=== PATIENT | female | born 1950 | race Asian ===

== ENCOUNTER 2016-06-18 13:56 | Emergency (ER) | payer MEDICARE, MEDICAID ==
[~2016-06-18] VITALS: Ht 167.6 cm; Wt 65.8 kg
[~2016-06-18 13:56] MED LIST: IBUPROFEN600 MG ORAL; NORCO 5-325 TA1 EAC1 ORAL; NORCO 5-325 TA1 EACH ORAL; PANTOPRAZOLE SO40 MG ORAL; PRILOSEC20 MG PO; TAMIFLU75 MG PO; VALIUM2 MG ORAL
[2016-06-18 14:55] VITALS: BP 106/70
[2016-06-18] MEDS ORDERED: TRAMADOL HCL50 MG ORAL (16:02)
[2016-06-18] MEDS ORDERED: IBUPROFEN600 MG ORAL (16:02)
[2016-06-18 16:25] VITALS: BP_SYST 106; BP_SYST 111; BP_DIAS 70; BP_DIAS 74
--- NOTE | 2016-06-18 17:30 | Diagnostic Imaging Report ---
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 There is some secondary degenerative change There are fractures of the second third and fourth possible phalanges noted. No carpal fracture. Bones are osteoporotic. Impression: Positive for second and third and fourth proximal phalangeal fractures. No acute carpal trauma Findings discussed by phone with Dr. Melendez in the emergency room at the time of interpretation
--- NOTE | 2016-06-18 17:50 | Diagnostic Imaging Report ---
Clinical Indication:PAIN Technique: 3 views of the right wrist Comparison: 05/15/2015 Findings: There is stable slight Madelung deformity and dorsal subluxation of the ulna, secondary degenerative change. There are acute fractures of the bases of the second third and fourth proximal phalanges. No acute dislocations. The bones are osteoporotic. There are degenerative changes of the second through fifth distal interphalangeal joints and of the fourth proximal interphalangeal joint Impression: Positive for second third and fourth proximal phalangeal fractures Osteoporosis Degenerative changes as described Findings discussed by phone with Dr. Melendez in the emergency room Chronic deformity as described
--- NOTE | 2016-06-18 22:39 | Emergency Room Report ---
History of Present Illness General Chief Complaint: Upper Extremity Injury Source: Patient (DANIEL RUCKER) Present Illness HPI The patient is a 66-year-old [id number] F present with right hand and wrist pain which began today after falling. The patient states that she tripped on cement outside and fell onto the right hand. Patient states that she is experiencing 10/10 dull pain to the wrist and hand. The patient denies numbness or tingling of the extremity and denies radiation of pain. (DANIEL RUCKER) Allergies: Coded Allergies: DIPHENHYDRAMINE HCL (Verified Allergy, 06/11/12) Patient History Reviewed Nursing Documentation: PMH: Agreed, PSxH: Agreed (DANIEL RUCKER) Nursing Documentation-PMH Hx Cancer: No Hx Gastrointestinal Problems: Yes - GERD Hx Neurological Problems: No (DANIEL RUCKER) Review of Systems All Other Systems: negative except mentioned in HPI (DANIEL RUCKER) Physical Exam Vital Signs Date Time Temp Pulse Resp B/P Pulse Ox O2 Delivery O2 Flow Rate FiO2 06/18/16 14:17 97.3 70 14 106/70 98 Room Air Sp02 EP Interpretation: reviewed, normal General Appearance: no apparent distress, alert, GCS 15, non-toxic Head: normocephalic, atraumatic Eyes: bilateral eye PERRL, bilateral eye normal inspection ENT: hearing grossly normal, normal pharynx, no angioedema, normal voice Musculoskeletal: back normal, gait/station normal, normal range of motion, swelling - over R 2nd, 3rd digits, tender - diffuse over R wrist and hand Neurologic: alert, oriented x3, responsive, motor strength/tone normal, sensory intact, speech normal Psychiatric: judgement/insight normal, memory normal, mood/affect normal, no suicidal/homicidal ideation Skin: normal color, no rash, warm/dry, well hydrated (DANIEL RUCKER P.Domingo) Procedures Splinting Splinting : Consent: Verbal Location: R hand Hand-Made Type: plaster Splint: volar Pre-Proc Neuro Vasc Exam: normal Post-Proc Neuro Vasc Exam: normal Patient Tolerated: Well Complications: None (DANIEL RUCKER) Medical Decision Making PA Attestation Dr. Bynum is my supervising physician. Patient management was discussed with my supervising physician (DANIEL RUCKER) Medicare Attestation The history of Biju Cotto has been reviewed and management options for her have been examined and discussed by Mauro Bynum. I have personally examined and interviewed the patient. (MAURO BYNUM M.D.) Diagnostic Impression: Primary Impression: Fracture of finger ER Course The patient is a 66-year-old female presenting with right hand and wrist pain after falling today Ddx considered include but not limited to sprain/strain, fracture, contusion Physical exam: Vitals are within normal limits. Right hand: There is tenderness to palpation diffusely over the wrist and hand. Limited active range of motion with flexion of fingers due to pain. There is edema noted over the second and third digits. Skin intact. SILT. X-ray of the wrist unremarkable. X-ray of the hand shows fractures of the second, third, and fourth proximal phalanges. Nondisplaced. Pt given motrin for pain and placed in volar splint. Pt will FU with PMD and orthopedics physician. ER preacautions given (DANIEL RUCKER) Other X-Ray Diagnostic Results Other X-Ray Diagnostic Results #1: X-Ray Ordered: R wrist Date: Jun 18, 2016 EP Interpretation: Yes Findings: no fractures, no dislocation, no soft tissue swelling Number of Views: 3 PA Scribe Text I am acting as scribe for my supervising physician. My supervising physician's interpretation of the R wrist xrays are there are no fractures, dislocations or soft tissue swelling. Other X-Ray Diagnostic Results #2: X-Ray Ordered: R hand Date: Jun 18, 2016 EP Interpretation: Yes Findings: no dislocation, other - Fracture of the 2nd, 3rd, and 4th proximal phalanges PA Scribe Text I am acting as scribe for my supervising physician. My supervising physician's interpretation of the R hand xrays are as above. Fractures of 2, 3,4th proximal phalanges (DANIEL RUCKER) Last Vital Signs Date Time Temp Pulse Resp B/P Pulse Ox O2 Delivery O2 Flow Rate FiO2 06/18/16 16:25 97.4 81 15 111/74 98 Room Air Status: improved (DANIEL RUCKER) Disposition: HOME, SELF-CARE Condition: Improved Scripts Tramadol Hcl* (ULTRAM*) 50 Mg Tablet 50 MG ORAL Q6H Y for For Pain, #10 TAB 0 Refills Prov: DANIEL RUCKER P.A. 06/18/16 Ibuprofen* (MOTRIN*) 600 Mg Tablet 600 MG ORAL Q8H Y for For Pain, #30 TAB 0 Refills Prov: DANIEL RUCKER.A. 06/18/16 Patient Instructions: Finger Fracture Additional Instructions: I discussed my findings with the patient. All questions and concerns have been answered. Treatment and medication compliance have been addressed. I advised the patient that they need to follow up with PMD in 3-5 days. Return to ED if pain remains or worsens, numbness or tingling occurs, new rash is noticed, fever is noticed, or if needed for any reason. Patient verbalized understanding of discharge instructions. DANIEL RUCKER Jun 18, 2016 22:39 MAURO BYNUM M.D. Jun 26, 2016 21:56
== END 2016-06-18 16:27 | disposition home or self-care (01) ==
LOC: EMR 15:50
DX: S62.630A Displaced fracture of distal phalanx of right index finger, initial encounter for closed fracture (principal); S62.612A Displaced fracture of proximal phalanx of right middle finger, initial encounter for closed fracture; S62.614A Displaced fracture of proximal phalanx of right ring finger, initial encounter for closed fracture; W01.0XXA Fall on same level from slipping, tripping and stumbling without subsequent striking against object, initial encounter; Y92.9 Unspecified place or not applicable; K21.9 Gastro-esophageal reflux disease without esophagitis
CPT/HCPCS: 29125; 99284

== ENCOUNTER 2017-06-15 11:20 | Emergency (ER) | payer MEDICARE, MEDICAID ==
[~2017-06-15] VITALS: Ht 167.6 cm; Wt 68.0 kg
[~2017-06-15 11:20] MED LIST changes: +TRAMADOL HCL50 MG ORAL
[2017-06-15 11:25] VITALS: BP 139/79
[2017-06-15] MEDS ORDERED: IBUPROFEN600 MG ORAL (12:18)
--- NOTE | 2017-06-15 12:18 | Emergency Room Report ---
History of Present Illness General Chief Complaint: Skin Rash/Abscess Source: Patient, Medical Record Present Illness HPI 67-year-old female patient presents to ER complaining of blister in her mouth for a few days. Patient reports blister on the inside of her cheek popped and began to drain blood. Patient states the blister is no longer bleeding. Patient denies tooth or gum pain. Patient reports no history of trauma to the area. Patient denies history of blood disorders. Patient states she has not been to the dentist in over a year. Denies fever, nausea, vomiting, rash, chest pain, SOB. Allergies: Coded Allergies: DIPHENHYDRAMINE HCL (Verified Allergy, 06/11/12) Patient History Past Medical History: see triage record Social History: Denies: smoking, alcohol use, drug use Reviewed Nursing Documentation: PMH: Agreed, PSxH: Agreed Nursing Documentation-PMH Past Medical History: No History, Except For Hx Cancer: No Hx Gastrointestinal Problems: Yes - GERD Hx Neurological Problems: No Review of Systems All Other Systems: negative except mentioned in HPI Physical Exam Vital Signs Date Time Temp Pulse Resp B/P (MAP) Pulse Ox O2 Delivery O2 Flow Rate FiO2 06/15/17 11:25 97.5 71 18 139/79 94 Room Air Sp02 EP Interpretation: reviewed, normal General Appearance: no apparent distress, alert, GCS 15, non-toxic Head: normocephalic, atraumatic Eyes: bilateral eye normal inspection, bilateral eye PERRL ENT: hearing grossly normal, normal pharynx, normal voice, uvula midline, moist mucus membranes, other - right inside of cheek in oral cavity: 1 cm open blister with dried blood, no active bleeding, no apthous ulcers, no vesicles Neck: full range of motion Respiratory: chest non-tender, lungs clear, normal breath sounds, speaking full sentences Cardiovascular #1: regular rate, rhythm Musculoskeletal: back normal, digits/nails normal, gait/station normal, normal range of motion, non-tender Neurologic: alert, oriented x3, responsive, motor strength/tone normal, sensory intact, speech normal Psychiatric: mood/affect normal Skin: normal color, no rash, warm/dry, well hydrated Lymphatic: no adenopathy Medical Decision Making PA Attestation Dr. Judd is my supervising physician with whom patient management has been discussed with. Diagnostic Impression: Primary Impression: Mouth sore ER Course Pt presents to ED c/o blister in mouth. DDX considered but are not limited to herpes, mechanical trauma, abrasion, gum disease, aphthous ulcer. VITAL SIGNS are WNL, patient is afebrile ORDERS: none required at this time, diagnosis is clinical ED INTERVENTIONS: none required at this time ER COURSE: Patient is resting comfortably in no acute distress, non-toxic appearing. Patient is not actively bleeding. Explained to patient possible causes of cut in mouth. Patient instructed to follow up with primary care provider and dentist in 3-5 days to discuss further treatment and followup. Patient reports understanding and agrees to treatment plan. DISCHARGE: Rx provided for Ibuprofen for pain At this time pt is stable for d/c to home. Will provide with patient care instructions and any necessary prescriptions. Patient to take medication as instructed. Care plan and follow-up instructions provided. Patient questions asked and answered. ER precautions given. Patient instructed to return to ER immediately for any new or worsening of symptoms. Last Vital Signs Date Time Temp Pulse Resp B/P (MAP) Pulse Ox O2 Delivery O2 Flow Rate FiO2 06/15/17 11:25 97.5 71 18 139/79 94 Room Air Disposition: HOME, SELF-CARE Condition: Stable Scripts Ibuprofen* (MOTRIN*) 600 Mg Tablet 600 MG ORAL Q6H Y for For Pain, #30 TAB Prov: Levi Dobbs 06/15/17 Additional Instructions: Followup with primary care provider in 3 -5 days for further follow up and treatment of mouth sore. Followup with dentist this week for further treatment. Take medications as directed. Patient questions asked and answered. ER precautions given, patient instructed to return to ER immediately for any new or worsening of symptoms. Levi Dobbs Jun 15, 2017 12:18
[2017-06-15 12:32] VITALS: BP 139/79
== END 2017-06-15 12:32 | disposition home or self-care (01) ==
LOC: EMR 11:58
DX: K13.70 Unspecified lesions of oral mucosa (principal); K21.9 Gastro-esophageal reflux disease without esophagitis; Z88.8 Allergy status to other drugs, medicaments and biological substances
CPT/HCPCS: 99283

== ENCOUNTER 2019-01-04 09:54 | Emergency (ER) | payer MEDICARE, MEDICAID ==
[~2019-01-04] VITALS: Ht 167.6 cm; Wt 72.6 kg
[2019-01-04 10:10] VITALS: BP 120/87
--- NOTE | 2019-01-04 10:13 | Emergency Room Report ---
History of Present Illness General Chief Complaint: General Complaint Source: Patient Present Illness HPI Patient is a 68-year-old female who presents for increased right-sided facial twitching. Patient reports this had been onset several weeks ago. She denies any extremity discomfort or weakness. She reports taking multiple medications due to osteoporosis including thiazide diuretic as well as bisphosphonate. She denies any diarrhea. She had prior history of hypertension. Allergies: Coded Allergies: DIPHENHYDRAMINE HCL (Verified Allergy, 06/11/12) Patient History Now: No Reviewed Nursing Documentation: PMH: Agreed; PSxH: Agreed Nursing Documentation-PMH Past Medical History: No History, Except For Hx Cancer: No Hx Gastrointestinal Problems: Yes - GERD Hx Neurological Problems: No Review of Systems All Other Systems: negative except mentioned in HPI Physical Exam Vital Signs Date Time Temp Pulse Resp B/P (MAP) Pulse Ox O2 Delivery O2 Flow Rate FiO2 01/04/19 09:59 97.9 72 15 156/89 (111) 95 Room Air Sp02 EP Interpretation: reviewed, normal General Appearance: normal inspection, well appearing, no apparent distress, alert, GCS 15, non-toxic Head: atraumatic ENT: normal ENT inspection, hearing grossly normal, normal voice Neck: normal inspection, full range of motion, supple, no bony tend Respiratory: normal inspection, lungs clear, normal breath sounds, no respiratory distress, no retraction, no wheezing Cardiovascular #1: regular rate, rhythm, no edema Gastrointestinal: normal inspection, normal bowel sounds, non tender, soft, no guarding, no hernia Genitourinary: no CVA tenderness Musculoskeletal: normal inspection, back normal, normal range of motion Neurologic: normal inspection, alert, responsive, speech normal Psychiatric: normal inspection, judgement/insight normal, mood/affect normal Medical Decision Making Diagnostic Impression: Primary Impression: Facial tic ER Course Patient presented for facial twitching. Differential diagnosis include was not limited to CVA, electrolyte abnormality, trigeminal neuralgia, facial nerve palsy among others. Because of complexity of patient's case laboratory testing and imaging studies were ordered. Patient was noted to be taking thiazide diuretics as well as medications for osteoporosis. CT imaging of the head read by radiology showed chronic ischemic white matter changes without evident acute CVA laboratory testing was essentially unremarkable. Patient appears to be stable for outpatient work-up. She advised to follow-up with neurology for further evaluation. She will be empirically treated with Tegretol due to facial tic. Patient is to return if worse. Last Vital Signs Date Time Temp Pulse Resp B/P (MAP) Pulse Ox O2 Delivery O2 Flow Rate FiO2 01/04/19 09:59 97.9 72 15 156/89 (111) 95 Room Air Status: improved Disposition: HOME, SELF-CARE Condition: Stable Scripts Carbamazepine (TEGRETOL*) 200 Mg Tablet 200 MG PO Q12HR, #20 TAB 0 Refills Prov: Yonas Coronado MD 01/04/19 Yonas Coronado MD Jan 04, 2019 10:13
[2019-01-04 10:33] LABS: BASOPHILS % (AUTO) 0.9 % (0.0-2.0); EOSINOPHILS % (AUTO) 1.2 % (0.0-3.0); HEMATOCRIT 39.3 % (37.0-47.0); HEMOGLOBIN 13.5 G/DL (12.0-16.0); LYMPHOCYTES % (AUTO) 28.8 % (20.0-45.0); MEAN CORPUSCULAR VOLUME 97 FL (80-99); MONOCYTES % (AUTO) 5.8 % (1.0-10.0); NEUTROPHILS % (AUTO) 63.3 % (45.0-75.0); PLATELET COUNT 208 K/UL (150-450); RED BLOOD COUNT 4.04 M/UL (4.20-5.40)
[2019-01-04 10:44] LABS: ANION GAP 9 mmol/L (5-15); BLOOD UREA NITROGEN 11 mg/dL (7-18); CALCIUM 8.9 MG/DL (8.5-10.1); CARBON DIOXIDE 24 MMOL/L (21-32); CHLORIDE 106 MMOL/L (98-107); CREATININE 0.7 MG/DL (0.55-1.30); SODIUM 139 MMOL/L (136-145)
[2019-01-04 10:57] LABS: ALANINE AMINOTRANSFERASE 19 U/L (12-78); ALBUMIN/GLOBULIN RATIO 1.1 (1.0-2.7); ALKALINE PHOSPHATASE 39 U/L (46-116); ASPARTATE AMINO TRANSFERASE 17 U/L (15-37); BILIRUBIN,TOTAL 0.5 MG/DL (0.2-1.0)
--- NOTE | 2019-01-04 11:00 | Diagnostic Imaging Report ---
Indications: Pain, increased right-sided facial twitching Technique: Spiral acquisitions obtained through the brain. Angled axial and coronal 5 x 5 mm slices were reconstructed. Total dose length product 1442.94 mGycm. CTDI vol(s) 70.38 mGy. Dose reduction achieved using automated exposure control Comparison: None. Findings: No acute intracranial hemorrhage or edema. No mass effect nor midline shift. Normal fuentes-white differentiation. Normal size, for age, ventricles and extra axial CSF spaces. There is minimal periventricular deep white matter low-attenuation consistent with chronic microvascular ischemic change. Visualized orbits and sinuses are unremarkable. The mastoids are clear. The calvarium is intact. Impression: Minimal periventricular deep white matter chronic ischemic change. Negative for acute intracranial bleed or mass effect The CT scanner at [facility] is accredited by the [employer] and the scans are performed using protocols designed to limit radiation exposure to as low as reasonably achievable to attain images of sufficient resolution adequate for diagnostic evaluation.
[2019-01-04] MEDS ORDERED: DEPAKOTE500 MG PO (11:28)
[2019-01-04] MEDS ORDERED: TEGRETOL200 MG PO (11:33)
[2019-01-04 11:49] VITALS: BP 134/76
== END 2019-01-04 11:50 | disposition home or self-care (01) ==
LOC: EMR 10:15
DX: F95.8 Other tic disorders (principal); I10 Essential (primary) hypertension; M81.0 Age-related osteoporosis without current pathological fracture; K21.9 Gastro-esophageal reflux disease without esophagitis; Z88.8 Allergy status to other drugs, medicaments and biological substances
CPT/HCPCS: 36415; 70450; 80053; 83735; 84443; 85025; 96365; 99284

== ENCOUNTER 2019-02-14 09:12 | Emergency (ER) | payer MEDICARE, MEDICAID ==
[~2019-02-14] VITALS: Ht 160 cm; Wt 65.8 kg
[~2019-02-14 09:12] MED LIST changes: +DEPAKOTE500 MG PO; +TEGRETOL200 MG PO
[2019-02-14] MEDS ORDERED: UNOBMED (09:19)
--- NOTE | 2019-02-14 09:30 | NUR ---
Patient walked in the ER complaining of pain on her Right side of the face radiating on her right side of the neck with a feeing of bnumbness and tingling sensation. Patient able to walk to the restroom without assistance. No signs of stroke. No slurred speech noted. No right arm or shoulder numbing. No drooping of the face noted. Able to grasp urne up without a problem.
--- NOTE | 2019-02-14 09:55 | Emergency Room Report ---
History of Present Illness General Chief Complaint: Pain Source: Patient Present Illness HPI Disclaimer: Please note that this report is being documented using DRAGON technology. This can lead to erroneous entry secondary to incorrect interpretation by the dictating instrument. HPI: Is a 69-year-old female presenting for evaluation of right-sided neck pain , shoulder pain and facial twitching as well as to discuss lab and imaging results. Patient recently underwent a full work-up by her PMD including a CT of the brain, CTA of the head and neck, full laboratory panel. She has not yet been able to discuss these results with her PMD and came in to discuss in the setting of neck pain and cramping. She is concerned that she may be having a stroke given the right shoulder pain because the CTA showed some calcifications in the vessels but no sniffing and stenosis, no aneurysm, no evidence of ischemia, no mass, no intracranial bleed. Lab work shows slight elevation in cholesterol also giving her anxiety thinking she may be having a stroke due to the cholesterol of 245. Electrolytes are within normal limits, methylmalonic acid, TSH within normal limits. Patient states she had a mechanical trip and fall over 1 week ago without a head injury or neck injury. Ever since then she has been having some cramping over the right shoulder and the right side of the neck and began as some twitching in the right side of the face yesterday. She denies headaches, visual changes, fevers, chills. No difficulty swallowing, no chest pain, no shortness of breath, no GI symptoms. Otherwise in her usual state of health. She is very concerned of whether or not she should start cholesterol medications and wanted to discuss her lab and imaging results as reason for her emergency department visit today. She is more concerned about starting cholesterol medications as opposed to a dietary approach and was requesting a second opinion on her lab results. PMH: None PSH: None Allergies: Benadryl Social Hx: Denies drug or alcohol use Allergies: Coded Allergies: DIPHENHYDRAMINE HCL (Verified Allergy, 06/11/12) Nursing Documentation-PMH Hx Cancer: No Hx Gastrointestinal Problems: Yes - GERD Hx Neurological Problems: No Review of Systems All Other Systems: negative except mentioned in HPI Physical Exam Vital Signs Date Time Temp Pulse Resp B/P (MAP) Pulse Ox O2 Delivery O2 Flow Rate FiO2 02/14/19 09:15 98.8 71 18 144/89 (107) 96 Room Air General: Awake and alert, no acute distress HEENT: Normocephalic, atraumatic. There are no scalp or face hematomas, lacerations or abrasions. No tenderness or soft tissue swelling over the facial bones. EOMI. PERRLA. No septal hematoma. No oral lacerations. Dentition is intact. No malocclusion Neck: Supple, trachea midline. Arrives without cervical collar CV: RRR. S1 and S2 normal. No murmur appreciated Resp: Normal work of breathing. No cough, wheezing or crackles appreciated Abd: Soft, nontender, nondistended Skin: Intact. No abrasions, laceration or rash over the exposed skin MSK: Normal tone and bulk. No obvious deformity. Moving all extremities. Ambulating without difficulty. Neuro: Awake and alert. Mentating appropriately. Intermittent twitching of the right cheek Spine: There is no tenderness, step-off or deformity in the cervical, thoracic or lumbosacral spine. There is right-sided paraspinal tenderness extending over the right shoulder in the distribution of the right trapezius. No limitation in range of motion in the right upper extremity. Medical Decision Making Diagnostic Impression: Primary Impression: Facial twitching Additional Impression: Spasm of back muscles ER Course This is a 69-year-old female who had a mechanical fall without head injury or back injury last week now complaining of right-sided neck and shoulder pain as well as facial twitching as well as to discuss recent CT and lab results. I reviewed the patient's CT and labs and show no significant acute disease aside from mild elevation in total cholesterol and atherosclerotic disease of the cranial vessels. She is in no acute acute distress and does not appear to be significant Andres bothered by her neck or shoulder pain has much as she is regarding the hypercholesterolemia. I discussed with her that she needs to follow-up more closely with her PMD to fully discuss all her concerns regarding starting new medications and her lab and imaging results. We will treat her back spasms with NSAIDs, Lidoderm patch, Robaxin. She has had facial twitching in the past and that she can follow-up with her PMD as well. Do not believe she requires emergent lab work or imaging given the recent diagnostics studies performed. She will be discharged to follow-up with her PMD. We discussed reasons to return to the emergency department. She understands and agrees with this treatment plan Last Vital Signs Date Time Temp Pulse Resp B/P (MAP) Pulse Ox O2 Delivery O2 Flow Rate FiO2 02/14/19 09:15 98.8 71 18 144/89 (107) 96 Room Air Disposition: HOME, SELF-CARE Condition: Stable Scripts Lidocaine Patch* (Lidoderm Patch*) 1 Each Adh..patch 1 PATCH TOPIC DAILY, #7 PATCH 0 Refills Patch(es) may remain in place for up to 12 hours in any 24-hour period. Prov: Jerry Hewitt MD 02/14/19 Methocarbamol (Methocarbamol) 750 Mg Tablet 750 MG PO QID for 7 Days, #28 TAB Prov: Jerry Hewitt MD 02/14/19 Ibuprofen* (MOTRIN*) 600 Mg Tablet 600 MG ORAL Q8H PRN for For Pain, #30 TAB 0 Refills Prov: Jerry Hewitt MD 02/14/19 Jerry Hewitt MD Feb 14, 2019 09:55
[2019-02-14] MEDS ORDERED: IBUPROFEN600 MG ORAL (10:00)
[2019-02-14] MEDS ORDERED: METHOCARBAMOL750 M1 PO (10:00)
[2019-02-14] MEDS ORDERED: Ketorolac 30mg Inj IM ONE (10:00)
[2019-02-14] MEDS ORDERED: LIDODERM700 M1 TOPIC (10:00)
[2019-02-14] MEDS ORDERED: Methocarbamol 750mg tab ORAL ONE (10:00)
[2019-02-14 10:34] VITALS: BP 151/80
[2019-02-14 10:38] VITALS: BP 137/80
--- NOTE | 2019-02-14 10:42 | NUR ---
ER DISCHARGE NOTE: Patient is cleared to be discharged per ERMD, pt is aox4, on room air, with stable vital signs. pt was given dc and prescription instructions, pt was able to verbalize understanding, pt id band and removed without complications. pt is able to ambulate with steady gait. pt took all belongings.
== END 2019-02-14 10:38 | disposition home or self-care (01) ==
LOC: EMR 10:00
DX: M62.830 Muscle spasm of back (principal); R25.3 Fasciculation; K21.9 Gastro-esophageal reflux disease without esophagitis; Z88.8 Allergy status to other drugs, medicaments and biological substances; E78.00 Pure hypercholesterolemia, unspecified; F41.9 Anxiety disorder, unspecified
CPT/HCPCS: 96372; 99283; J1885

== ENCOUNTER 2019-05-06 10:12 | Emergency (ER) | payer MEDICARE, MEDICAID ==
[~2019-05-06] VITALS: Ht 167.6 cm; Wt 65.8 kg
[~2019-05-06 10:12] MED LIST changes: +LIDODERM700 M1 TOPIC; +METHOCARBAMOL750 M1 PO; +UNOBMED
[2019-05-06] MEDS ORDERED: ASPIRIN81 MG ORAL (10:22)
[2019-05-06] MEDS ORDERED: ATORVASTATIN CA20 MG ORAL (10:22)
--- NOTE | 2019-05-06 10:39 | Emergency Room Report ---
History of Present Illness General Chief Complaint: Abdominal Pain Source: Patient Present Illness HPI Disclaimer: Please note that this report is being documented using DRAGON technology. This can lead to erroneous entry secondary to incorrect interpretation by the dictating instrument. HPI: 69-year-old female presents for evaluation of abdominal pain. Symptoms have been present for approximately 4 days. Intermittent abdominal pain without significant nausea, vomiting or diarrhea reported. Pain was 10 out of 10 this morning, somewhat of a burning sensation in the epigastrium and in the upper quadrants bilaterally. Occasionally the pain will radiate up into the chest. She has been treated for GERD in the past. Pain is exacerbated by eating and cannot recall any specific relieving factors. No history of intra- abdominal surgery. Denying chest pain, shortness of breath, recent URI symptoms. Patient drinks 1 or 2 cans of beers a week. Denies any recent alcohol use. PMH: Hypertension, hypercholesterolemia, osteoporosis, GERD PSH: Denies Allergies: Benadryl Social Hx: Never smoker, occasional alcohol Allergies: Coded Allergies: DIPHENHYDRAMINE HCL (Verified Allergy, 06/11/12) Nursing Documentation-PMH Past Medical History: No History, Except For Hx Cancer: No Hx Gastrointestinal Problems: Yes - GERD Hx Neurological Problems: No Review of Systems All Other Systems: negative except mentioned in HPI Physical Exam Vital Signs Date Time Temp Pulse Resp B/P (MAP) Pulse Ox O2 Delivery O2 Flow Rate FiO2 05/06/19 10:17 97.5 70 17 118/67 (84) 99 Room Air General: Awake and alert, no acute distress HEENT: NC/AT. EOMI. Neck: Supple, trachea midline Chest Wall: No tenderness, no deformity Cardiovascular: RRR. S1 and S2 normal. No murmur appreciated Resp: Normal work of breathing. No cough, wheezing or crackles appreciated Abdomen: Abdomen is soft, nondistended. Abdomen is very tender to palpation in the epigastric region as well as the right upper quadrant and left upper quadrant. Negative Garcia's. No rebound otherwise. The remainder of the abdomen is nontender. Skin: Intact. No abrasions, laceration or rash over the exposed skin MSK: Normal tone and bulk. Moving all extremities. No obvious deformity. Neuro: Awake and alert. Mentating appropriately. Medical Decision Making Diagnostic Impression: Primary Impression: Abdominal pain Additional Impressions: Diverticula of colon Varices, esophageal ER Course 61-year-old female with a history of GERD presents for evaluation of 4 days worsening abdominal pain. Differential includes was not limited to gastritis, gastroenteritis, pancreatitis, cholecystitis, ACS, esophagitis, mesenteric ischemia, UTI. Start broad metabolic infectious and cardiac work-up. Will send patient for a CT scan of the abdomen with IV contrast. IV fluids, antacids and GI cocktail ordered. Currently denying nausea. Laboratory Tests Test 05/06/19 10:50 05/06/19 12:20 White Blood Count 3.8 K/UL (4.8-10.8) L Red Blood Count 3.63 M/UL (4.20-5.40) L Hemoglobin 11.9 G/DL (12.0-16.0) L Hematocrit 34.7 % (37.0-47.0) L Mean Corpuscular Volume 96 FL (80-99) Mean Corpuscular Hemoglobin 32.8 PG (27.0-31.0) H Mean Corpuscular Hemoglobin Concent 34.3 G/DL (32.0-36.0) Red Cell Distribution Width 10.5 % (11.6-14.8) L Platelet Count 137 K/UL (150-450) L Mean Platelet Volume 6.4 FL (6.5-10.1) L Neutrophils (%) (Auto) 72.6 % (45.0-75.0) Lymphocytes (%) (Auto) 15.9 % (20.0-45.0) L Monocytes (%) (Auto) 10.3 % (1.0-10.0) H Eosinophils (%) (Auto) 0.0 % (0.0-3.0) Basophils (%) (Auto) 1.2 % (0.0-2.0) Sodium Level 140 MMOL/L (136-145) Potassium Level 4.3 MMOL/L (3.5-5.1) Chloride Level 102 MMOL/L (98-107) Carbon Dioxide Level 28 MMOL/L (21-32) Anion Gap 10 mmol/L (5-15) Blood Urea Nitrogen 15 mg/dL (7-18) Creatinine 0.6 MG/DL (0.55-1.30) Estimate Glomerular Filtration Rate > 60 mL/min (>60) Glucose Level 100 MG/DL (74-106) Calcium Level 8.5 MG/DL (8.5-10.1) Total Bilirubin 0.3 MG/DL (0.2-1.0) Aspartate Amino Transferase (AST) 20 U/L (15-37) Alanine Aminotransferase (ALT) 23 U/L (12-78) Alkaline Phosphatase 46 U/L (46-116) Troponin I 0.009 ng/mL (0.000-0.056) Total Protein 7.7 G/DL (6.4-8.2) Albumin 4.1 G/DL (3.4-5.0) Globulin 3.6 g/dL Albumin/Globulin Ratio 1.1 (1.0-2.7) Lipase 179 U/L (73-393) Urine Color Pale yellow Urine Appearance Clear Urine pH 6 (4.5-8.0) Urine Specific [place] 1.010 (1.005-1.035) Urine Protein Negative (NEGATIVE) Urine Glucose (UA) Negative (NEGATIVE) Urine Ketones 1+ (NEGATIVE) H Urine Blood Negative (NEGATIVE) Urine Nitrite Negative (NEGATIVE) Urine Bilirubin Negative (NEGATIVE) Urine Urobilinogen Normal MG/DL (0.0-1.0) Urine Leukocyte Esterase Negative (NEGATIVE) EKG Diagnostic Results EKG Time: 10:57 Rate: normal Rhythm: NSR ST Segments: no acute changes Other Impression Sinus rhythm, normal axis, normal intervals, no ST segment changes. RSR prime in V1, V2 consistent with a right bundle block Rhythm Strip Diag. Results Rhythm Strip Time: 10:57 EP Interpretation: yes Rate: 60s Rhythm: NSR, no PVC's, no ectopy Reevaluation Time: 14:22 Last Vital Signs Date Time Temp Pulse Resp B/P (MAP) Pulse Ox O2 Delivery O2 Flow Rate FiO2 05/06/19 10:17 97.5 70 17 118/67 (84) 99 Room Air Reevaluation Impression Pain improved after a GI cocktail. Labs have returned within normal limits. CT scan of the abdomen showed small esophageal varices, diverticulosis without diverticulitis, no evidence of appendicitis or other major pathology. The patient's pain is all epigastric and she does not have any clinical signs of diverticulitis. 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 She does drink a lot of coffee and eat a lot of chocolate as well as spicy foods which I suspect is making her gastritis somewhat worse. We will start her on omeprazole and Maalox. She will follow-up with her PMD. Copies of her labs imaging were included in her discharge paperwork. We discussed reasons to return to the emergency department. She understands and agrees with this treatment plan. Disposition: HOME, SELF-CARE Condition: Improved Scripts Mag Hydrox/Al Hydrox/Simeth (MAALOX MAXIMUM STRENGTH SUSP) 355 Ml Oral.susp 15 ML PO TID for 10 Days, #355 ML Prov: Jerry Hewitt MD 05/06/19 Omeprazole (OMEPRAZOLE) 20 Mg Capsule. 20 MG ORAL DAILY for 30 Days, #30 CAP Prov: Jerry Hewitt MD 05/06/19 Referrals: NOT CHOSEN PRISCA/,REFERRING (PCP) Jerry Hewitt MD May 06, 2019 10:39
[2019-05-06] MEDS ORDERED: Lidocaine 2% Visc 15ml soln ORAL ONE (10:45)
[2019-05-06] MEDS ORDERED: Mylanta II UD 30ml ORAL ONE (10:45)
[2019-05-06] MEDS ORDERED: Omnipaque-300 100ml vial INJ PRN (10:45)
[2019-05-06] MEDS ORDERED: Dicyclomine HCl 10mg/5ml oral soln ORAL ONE (10:45)
[2019-05-06 10:50] VITALS: BP 118/67
[2019-05-06 11:22] LABS: ANION GAP 10 mmol/L (5-15); BLOOD UREA NITROGEN 15 mg/dL (7-18); CALCIUM 8.5 MG/DL (8.5-10.1); CARBON DIOXIDE 28 MMOL/L (21-32); CHLORIDE 102 MMOL/L (98-107); CREATININE 0.6 MG/DL (0.55-1.30); POTASSIUM 4.3 MMOL/L (3.5-5.1); SODIUM 140 MMOL/L (136-145)
[2019-05-06 11:27] LABS: ALANINE AMINOTRANSFERASE 23 U/L (12-78); ALBUMIN 4.1 G/DL (3.4-5.0); ALBUMIN/GLOBULIN RATIO 1.1 (1.0-2.7); ALKALINE PHOSPHATASE 46 U/L (46-116); ASPARTATE AMINO TRANSFERASE 20 U/L (15-37); BILIRUBIN,TOTAL 0.3 MG/DL (0.2-1.0)
[2019-05-06 11:29] LABS: BASOPHILS % (AUTO) 1.2 % (0.0-2.0); HEMATOCRIT 34.7 % (37.0-47.0); HEMOGLOBIN 11.9 G/DL (12.0-16.0); LYMPHOCYTES % (AUTO) 15.9 % (20.0-45.0); MEAN CORPUSCULAR VOLUME 96 FL (80-99); MONOCYTES % (AUTO) 10.3 % (1.0-10.0); NEUTROPHILS % (AUTO) 72.6 % (45.0-75.0); PLATELET COUNT 137 K/UL (150-450); RED BLOOD COUNT 3.63 M/UL (4.20-5.40); RED CELL DISTRIBUTION WIDTH 10.5 % (11.6-14.8); WHITE BLOOD COUNT 3.8 K/UL (4.8-10.8)
[2019-05-06 12:28] VITALS: BP 106/72
[2019-05-06 13:09] LABS: APPEARANCE,URINE CLEAR; BILIRUBIN, URINE NEGATIVE (NEGATIVE); COLOR,URINE PALE YELLOW; GLUCOSE, URINE (UA) NEGATIVE (NEGATIVE); KETONES,URINE 1+ (NEGATIVE); LEUKOCYTE ESTERASE ,URINE NEGATIVE (NEGATIVE); NITRITE,URINE NEGATIVE (NEGATIVE); PH,URINE 6 (4.5-8.0); PROTEIN,URINE NEGATIVE (NEGATIVE); UROBILINOGEN,URINE NORMAL MG/DL (0.0-1.0)
--- NOTE | 2019-05-06 14:01 | Diagnostic Imaging Report ---
Clinical Indication: Abdominal pain Technique: No oral contrast utilized, per emergency room physician request IV administration nonionic contrast. Venous phase spiral acquisition obtained through the abdomen and pelvis. Multiplanar reconstructions were generated. Total dose length product 1417 mGycm. CTDIvol(s) 24 mGy. Dose reduction achieved using automated exposure control Comparison: none Findings: Assessment of the GI tract is limited due to lack of contrast administration. The appendix is somewhat prominent in caliber, but contains gas throughout and there is no periappendiceal inflammation. There is questionably a slight degree of inflammation of the pericecal fat although there is no grossly evident cecal wall thickening. There is colonic diverticulosis, and diverticula are present in the cecal region. No evidence of acute diverticulitis elsewhere. No small bowel distention. No free or loculated intraperitoneal gas or fluid. The distal esophagus, stomach, duodenum are unremarkable. There is a small very focal collection of varices seen in the region of the gastroesophageal junction. The liver, gallbladder, bile ducts are unremarkable. The pancreas, spleen, adrenals, kidneys are all unremarkable. The bladder appears slightly thick walled. No pelvic mass or adenopathy. The included lung bases demonstrate posterior dependent atelectatic changes. The bones compression fracture deformities of all of the lumbar spine segments as well as of the T11 and T12, some fractures with greater than 50% height loss. Impression: Limited assessment of the GI tract, due to lack of enteric contrast administration. Equivocal mild infiltration of the pericecal fat. As there are diverticula in the area, this finding if real could indicate very early acute cecal diverticulitis. Correlate with clinical findings Normal-appearing appendix Small focal varices in the region of the gastroesophageal junction, significance/etiology uncertain as there is no evidence of cirrhosis and no other stigmata of portal hypertension demonstrated. The splenic vein is patent Mild bladder wall thickening, could indicate cystitis changes. Correlate with clinical findings Compression fracture deformities of every spinal segment from T11 through L5. Acuity indeterminate. Consider MRI for better characterization if considered clinically relevant Posterior pulmonary dependent atelectatic changes The CT scanner at [facility] is accredited by the [employer] and the scans are performed using protocols designed to limit radiation exposure to as low as reasonably achievable to attain images of sufficient resolution adequate for diagnostic evaluation.
[2019-05-06] MEDS ORDERED: MAALOX MAXIMUM355 M1 PO (14:18)
[2019-05-06] MEDS ORDERED: OMEPRAZOLE20 M2 ORAL (14:18)
[2019-05-06 14:28] VITALS: BP 110/68
[2019-05-06 14:29] VITALS: BP 106/72
== END 2019-05-06 14:31 | disposition home or self-care (01) ==
LOC: EMR 10:28
DX: K57.30 Diverticulosis of large intestine without perforation or abscess without bleeding (principal); I85.00 Esophageal varices without bleeding; R10.9 Unspecified abdominal pain; K21.9 Gastro-esophageal reflux disease without esophagitis; Z88.8 Allergy status to other drugs, medicaments and biological substances
CPT/HCPCS: 36415; 74177; 80053; 81003; 83690; 84484; 85025; 93005; 96361; 96374; 99284; J7030; Q9967; S0028